=== PATIENT | female | born 1995 | race Caucasian/White ===

== ENCOUNTER 2020-02-06 05:55 | Inpatient (IN) ==
[2020-02-06] MEDS ORDERED: OXYTOCIN 30 UNITS/500 ML BAG IV PRN ×3 (07:58→18:45)
[2020-02-06 08:33] LABS: Hematocrit (blood only) 35.9 % (37-47); Hemoglobin 12.3 g/dL (12.0-16.0); Mean Corpuscular Volume 87.6 fL (80-100); Mean Platelet Volume 10.4 fL (7.4-10.4); Platelet Count 209 K/uL (130-400); RDW Standard Deviation 41.7 fL (36.4-46.3); White Blood Count 14.04 K/uL (4.8-10.8)
[2020-02-06 08:38] LABS: Mean Corpuscular Hgb Conc 34.3 g/dL (32-36)
--- NOTE | 2020-02-06 08:44 | Medical Student H&P ---
Date of Service February 06, 2020 Assessment & Plan (1) Elective induction of labor planned: Patient reports some mild discomfort from cervical Nevarez as well as some n/v last night but overall feeling well now. Proceed with induction of labor per Pitocin augmentation protocol. Will continue to monitor. Patient desires epidural. Anesthesiology consult placed. Expect . Present on Admission?: Yes (2) Need for rhogam due to Rh negative mother: Rhogam administered at 28 weeks (11/15/19). Plan to administer Rhogam again if D-positive baby at 72 hours . Present on Admission?: Yes Admission and Anticipated Discharge Date Admission Date: February 06, 2020 History of Present Illness Chief Complaint: Induction of Labor Primary Care Provider: Albert Fuentes DO Aleisha Cheney is a 24 y/o female currently at 40 w 3d with an ADÁN of 02/04/20 by [facility] who is here for induction of labor due to post-date . Her was complicated by Rh- status s/p Rhogam (11/15/19) and ASCUS with HRHPV. Nevarez bulb was placed by Dr. Salinas at 8PM last night, 02/04. Patient endorsed some cramping, bleeding, nausea and vomiting after this procedure. + contractions; + movement; - fluid loss; - bloody show Had regular appointments with OB. Labs Blood type: A- Antibody screen: negative H.9 (07/19/19) Hct: 34.6% (11/15/19) Rubella: immune (07/19/19) VDRL/RPR: nonreactive (07/19/19) Gonorrhea: neg (07/19/19) Chlamydia: neg (07/19/19) HIV: neg (07/19/19) HbSAg: neg (07/19/19) GBS: neg (01/11/20) Other Screens: Panorama testing - low risk result, female Declined CF/SMA; AFP Allergies Allergy/AdvReac Type Severity Reaction Status Date / Time No Known Allergies Allergy Verified 02/06/20 10:18 Home Medications Home Medications Medication Instructions Recorded Confirmed Type vit no.[id number]-rxaqx 1 tab PO DAILY 02/05/20 02/06/20 History [ Vitamin] Patient History Medical History Abnormal biochemical finding on screening of mother Anxiety Encounter for anatomic survey First trimester Surgical History History of facial fracture repair History of repair of ACL History of rhinoplasty S/P tonsillectomy and adenoidectomy Family History Grandmother (Maternal) Breast cancer Diabetes Mother [place] Stroke Diabetes Denies family history of Colon cancer Ovarian cancer Prostate cancer Myocardial infarction Social History Smoking Status: Never smoker Second Hand Exposure: No; Hx Alcohol Use: No Hx Substance Use: No Preferred Language: Sammarinese Communication Ability: Effective Price Clerk Required: No Beliefs That Will Affect Care: None marital status: Single marital status details: FOB: Sherman Singh (37) [phone] Current Living Situation: Significant Other Current Living Situation Comment: lives with mom, dad, brother, 2 dogs, 1 cat. mom changes litter. current occupational status: employed current occupation: asset accountant Other Information That Helps Us Care for You: No Feels Safe at Home: Yes Safety Concerns: Feels Safe At This Time Diet Comment: no specific diet Dental Care, Regularly: No Physical Activity Frequency: 3-4 Times per Week Seatbelt Use: always Do you think of yourself as: straight/heterosexual Review of Systems no fever, no chills and no sweats no cough and no dyspnea no chest pain and no palpitations + nausea and + vomiting; no abdominal pain and no constipation no dysuria, no urinary frequency and no urinary urgency no dizziness and no headache(s) no changes in vision Physical Exam Constitutional: WD/WN, vitals as above Neck: normal visual inspection Respiratory: normal respiratory effort, lungs clear to auscultation Cardiovascular: Rate/Rhythm: regular rate and regular rhythm Heart Sounds: normal S1 and normal S2; no click, no gallop, no murmur and no cardiac rub Gastrointestinal (Abdomen): normal bowel sounds, soft, nontender, no hepatosplenomegaly Musculoskeletal: No calor, swelling, edema or erythema in the bilateral lower extremities. Stacey's sign negative. Skin: no rashes, warm and dry Psychiatric: A+Ox3, euthymic affect Genitourinary: Manual OB Exam: + cervical dilation 4 cm, + cervical effacement 50% and + station -2 OB Exam Monitor Tracing: + external FHT monitor used, + external uterine monitor used, + category I and + normal FHT variability Results & Data ([facility]) Vital Signs (Past 12 Hours) Vital Signs Temp Pulse Resp BP 02/06/20 07:53 37.1 C 86 20 116/63 02/06/20 07:51 86 116/63 02/05/20 21:10 18 Supervising Attestation Patient seen and evaluated with MS2. Agree with above H&P. Please see other attending H&P.
[2020-02-06] MEDS: LACTATED RINGER'S 1,000 ML IV PRN ×2 (08:53→12:34)
--- NOTE | 2020-02-06 08:54 | History & Physical Report ---
Date of Service February 06, 2020 Assessment & Plan (1) Encounter for induction of labor: Pt doing well. Nausea has improved. Cervical calderon catheter removed via gentle traction by Dr. Lundberg. Pt tolerated well. Proceed with induction of labor per Pitocin augmentation protocol. May consider arom. Will continue to monitor patient. Patient desires epidural; anesthesiology consult placed. Anticipate . (2) Rh negative, maternal: Rhogam administered at 28 weeks (11/15/19). Will plan to administer Rhogam again at 72h pp if baby is D-positive. (3) : Admission and Anticipated Discharge Date Admission Date: February 06, 2020 History of Present Illness Primary Care Provider: Albert Fuentes DO Aleisha Cheney is a 24 y/o female currently at 40 2/7 WGA with an ADÁN 02/04/20 as determined by US#1 (unknown LNMP) who is here for IOL for postdate . was complicated by Rh- status (s/p rhogam 11/15/19) and ASCUS with HRHPV on pap (plan for repeat pap in 1 year due Jun 2020). Patient had a cervical calderon placed last night at 8:00pm by Dr. Salinas. She states that since placement, she has had a lot of cramping and nausea. She did have emesis last night after returning home s/p the procedure. The nausea is improving. Pt otherwise has no other concerns. + int contractions; + movement; - fluid loss; - bloody show Had regular appointments with OB. Blood type: A- Antibody screen: Neg H.3 (today) Hct: 35.9 (today) WBC: 14.04 (today) Plt: 209 (today) Rubella: Immune (07/19/19) VDRL/RPR: Nonreactive (07/19/19) Gonorrhea: Neg (07/19/19) Chlamydia: Neg (07/19/19) HIV: Neg (07/19/19) HbSAg: Neg (07/19/19) GBS: Neg (01/11/20) COVID-19 negative 01/31/20 Other screens: CF: declined SMA: declined Panorama: low risk, female Allergies Allergy/AdvReac Type Severity Reaction Status Date / Time No Known Allergies Allergy Verified 02/06/20 10:18 Home Medications Home Medications Medication Instructions Recorded Confirmed Type vit no.[id number] 1 tab PO DAILY 02/05/20 02/06/20 History [ Vitamin] Patient History Medical History Abnormal biochemical finding on screening of mother Anxiety Encounter for anatomic survey First trimester Surgical History History of facial fracture repair History of repair of ACL History of rhinoplasty S/P tonsillectomy and adenoidectomy Family History Grandmother (Maternal) Breast cancer Diabetes Mother [place] Stroke Diabetes Denies family history of Colon cancer Ovarian cancer Prostate cancer Myocardial infarction Social History Smoking Status: Never smoker Second Hand Exposure: No; Hx Alcohol Use: No Hx Substance Use: No Preferred Language: Rwandan Communication Ability: Effective Workforce Development Assistant Required: No Beliefs That Will Affect Care: None marital status: Single marital status details: FOB: Sherman Singh (37) [phone] Current Living Situation: Significant Other Current Living Situation Comment: lives with mom, dad, brother, 2 dogs, 1 cat. mom changes litter. current occupational status: employed current occupation: real estate accountant Other Information That Helps Us Care for You: No Feels Safe at Home: Yes Safety Concerns: Feels Safe At This Time Diet Comment: no specific diet Dental Care, Regularly: No Physical Activity Frequency: 3-4 Times per Week Seatbelt Use: always Do you think of yourself as: straight/heterosexual Review of Systems Denies fever, chills, sweats Denies shortness of breath. Denies chest pain. Denies breast pain. + abdominal cramping, n/v, all s/p cervical calderon placement Denies dysuria. Denies leg pain or leg swelling. Denies headache or changes in vision. Physical Exam Physical Exam: General: Alert, oriented. No acute distress. Cardiac: Regular rate and rhythm, no murmurs/rubs/gallops. Respiratory: Clear to auscultation bilaterally a/p, no wheezes/rales/rhonchi. No increased work of breathing. Symmetrical chest rise. No respiratory distress. Abdomen: Gravid; full term. EFW 8-9#. Pelvic: Cervical calderon catheter removed with gentle traction by Dr. Lundberg. Dilation 4cm; Effacement 50%; Station -[address] Lundberg. External FHT and external uterine monitors used; Category I tracing; good FHT variability. Lower Extremities: No lower extremity edema or swelling. No deep calf pain. Stacey's negative bilaterally Results & Data ([facility]) Vital Signs (Past 12 Hours) Vital Signs Temp Pulse Resp BP 02/06/20 07:53 37.1 C 86 20 116/63 02/06/20 07:51 86 116/63 02/05/20 21:10 18 Supervising Physician Co-Signing Physician Notes Resident Physician Supervision Note: I interviewed and examined the patient. Discussed with Dr. Momin and agree with findings and plan as documented in the note. Any exceptions or clarifications are listed here: at 40+ weeks presents for postdates induction. Calderon removed this am. fetus categoyry one. cx 4+cm. Plan pit induction, arom when indicated. epidural on demand. Anticipate . Documented By: Farhana Lundberg MD, FACOG
[2020-02-06] MEDS ORDERED: ePHEDrine sulfate 50 MG/ML AMP ONE (11:55)
[2020-02-06] MEDS ORDERED: BUPIVACAINE 0.25% 30 ML VIAL ONE (11:55)
[2020-02-06] MEDS ORDERED: fentaNYL citrate 100 MCG/2 ML VIAL ONE (11:55)
[2020-02-06] MEDS ORDERED: fentaNYL 2MCG/ML ROPIV 1.25MG/ML 100 ML BAG EPI ONE (11:56)
[2020-02-06] MEDS ORDERED: NALOXONE HCL 0.4 MG/1 ML VIAL/CARP IV PRN (12:13)
[2020-02-06] MEDS ORDERED: ePHEDrine sulfate 50 MG/ML AMP IV PRN (12:13)
[2020-02-06] MEDS ORDERED: fentaNYL 2MCG/ML ROPIV 1.25MG/ML 100 ML BAG EPI PRN (12:13)
[2020-02-06] MEDS ORDERED: DiphenhydrAMINE HCL 50 MG/ML VIAL IV PRN (12:13)
[2020-02-06] MEDS ORDERED: NALOXONE HCL 1 MG in SODIUM CHLORIDE 0.9% 1000ML 1,000 ML IV PRN (12:13)
[2020-02-06] MEDS ORDERED: ONDANSETRON INJ 2 MG/ML 2 ML VIAL IV PRN (12:13)
--- NOTE | 2020-02-06 12:18 | Anesthesiology Consultation ---
Date of Service February 06, 2020 Assessment & Plan Chart Review Chart Review: Patient NOT seen in Pre Admission Testing and Acceptable Risk for Labor Epidural Consults Requested none ASA ASA2 Proposed Anesthesia Anesthesia Type: Labor Epidural and CSE Risk / Benefits Reviewed With: PT / POA / Parent / Guardian, Accepts Plan and Informed Consent Obtained History Surgery Covid 19 negative on 01/31/20. Height/Weight Height: 5 ft 9 in Weight: 98.883 kg Allergies Allergy/AdvReac Type Severity Reaction Status Date / Time No Known Allergies Allergy Verified 02/06/20 10:18 Medications Home Medications Medication Instructions Recorded Confirmed Last Taken vit no.[id number] 1 tab PO DAILY 02/05/20 02/06/20 02/04/20 [ Vitamin] Active Medications Generic Name Dose Route Start Last Admin Trade Name Freq PRN Reason Stop Dose Admin Lactated Ringer's 1,000 mls @ 125 mls/hr 02/06/20 07:58 02/06/20 12:00 Lr IV 02/08/20 07:57 999 mls/hr .Q8H PRN Infusion L&D Protocol Protocol Oxytocin 30 units in 500 mls @ 11 mls/hr 02/06/20 07:59 02/06/20 11:30 Pitocin IV 02/08/20 07:58 0.66 units/hr .Q24H PRN 11 mls/hr Labor Induction/Augmentation Titration Protocol 0.66 UNITS/HR NPO Date Last Intake of Fluids: 02/06/20 Time Last Intake of Fluids: 10:30 Date Last Intake of Solids: 02/06/20 Time Last Intake of Solids: 06:30 Past Medical History Medical History Abnormal biochemical finding on screening of mother Anxiety Encounter for anatomic survey First trimester Exercise / Class Metabolic Activity II 4-5 Yardwork/Stairs/Walk up hill Past Family History Family History Grandmother (Maternal) Breast cancer Diabetes Mother [place] Stroke Diabetes Denies family history of Colon cancer Ovarian cancer Prostate cancer Myocardial infarction Past Surgical History Surgical History History of facial fracture repair History of repair of ACL History of rhinoplasty S/P tonsillectomy and adenoidectomy Past Anesthesia History No Hx of Anesthesia Complications and No Family Hx of Anesthesia Complications History of PONV No Hx of PONV and No Hx of Motion Sickness Social History Smoking Status: Never smoker Hx Alcohol Use: No Hx Substance Use: No substance use type: does not use Review of Systems no chest pain or sob Physical Exam Vital Signs Last Vital Signs Temp 37.1 C 02/06/20 07:53 Pulse 82 02/06/20 12:13 Resp 20 02/06/20 10:04 BP 123/72 02/06/20 11:04 Pulse Ox 100 02/06/20 12:13 ENMT Mouth: no TMJ abnormality Thyromental Distance: > or= 3.5 Finger Breadths Mallampati Class: II Neck normal visual inspection Respiratory normal respiratory effort Auscultation: lungs clear to auscultation bilaterally Cardiovascular Rate/Rhythm: regular rate and regular rhythm Musculoskeletal Spine: normal cervical ROM Neurologic moves all extremities Psychiatric Orientation: alert and oriented x 3 Testing Laboratory Results 02/06/20 08:17
--- NOTE | 2020-02-06 13:58 | Labor Progress Brief Note ---
Date of Service February 06, 2020 Subjective comfortable with epidural Assessment & Plan (1) Elective induction of labor planned: Admission and Anticipated Discharge Date Admission Date: February 06, 2020 continue current plan. fetus category one. anticipate nsved. Physical Exam Constitutional: WD/WN, vitals as above Psychiatric: A+Ox3, euthymic affect Genitourinary: cx--4/75/-2 toco--q2-3min, pit at 15 efm--120s wtih mod variability, accels to 150s, no decels Results & Data ([facility]) Vital Signs (Past 12 Hours) Vital Signs Temp Pulse Resp BP Pulse Ox 02/06/20 13:53 70 99 02/06/20 13:48 78 99 02/06/20 13:43 81 98 02/06/20 13:41 78 122/62 02/06/20 13:38 80 99 02/06/20 13:33 70 98 02/06/20 13:28 71 99 02/06/20 13:24 73 126/63 02/06/20 13:23 77 98 02/06/20 13:19 67 117/63 02/06/20 13:18 72 99 02/06/20 13:15 72 139/76 02/06/20 13:13 76 100 02/06/20 13:09 72 127/72 02/06/20 13:08 78 100 02/06/20 13:05 67 123/66 02/06/20 13:03 73 100 02/06/20 13:01 16 02/06/20 12:59 65 18 123/65 02/06/20 12:58 74 100 02/06/20 12:55 68 125/63 02/06/20 12:53 69 100 02/06/20 12:50 67 127/70 02/06/20 12:48 74 100 02/06/20 12:45 70 131/65 02/06/20 12:43 72 100 02/06/20 12:39 70 121/62 02/06/20 12:38 72 99 02/06/20 12:37 82 121/64 02/06/20 12:35 71 122/62 02/06/20 12:33 73 136/70 100 02/06/20 12:31 75 128/61 02/06/20 12:30 74 126/66 02/06/20 12:29 89 128/100 02/06/20 12:28 81 100 02/06/20 12:23 90 100 02/06/20 12:18 86 100 02/06/20 12:13 82 100 02/06/20 12:08 88 100 02/06/20 11:58 45 L 79 L 02/06/20 11:57 37.0 C 16 02/06/20 11:04 75 123/72 02/06/20 10:04 79 20 110/70 02/06/20 07:53 37.1 C 86 20 116/63 02/06/20 07:51 86 116/63 Coding Level of Care Code None Diagnoses Elective induction of labor planned
--- NOTE | 2020-02-06 17:12 | Labor Progress Brief Note ---
Date of Service February 06, 2020 Subjective vomiting. Assessment & Plan (1) Elective induction of labor planned: Admission and Anticipated Discharge Date Admission Date: February 06, 2020 Labor down for an hour then begin pushing. fetus category one. anticipate . Physical Exam Constitutional: WD/WN, vitals as above Psychiatric: A+Ox3, euthymic affect Genitourinary: cx--c/c/0-+1 toco--130s wtih mod variability, accels to 150s, no decels Results & Data ([facility]) Vital Signs (Past 12 Hours) Vital Signs Temp Pulse Resp BP Pulse Ox 02/06/20 17:08 100 H 100 02/06/20 17:03 121 H 100 02/06/20 16:58 92 H 100 02/06/20 16:55 78 128/68 02/06/20 16:53 82 100 02/06/20 16:48 77 100 02/06/20 16:43 85 100 02/06/20 16:41 96 H 134/84 02/06/20 16:39 95 H 90 02/06/20 16:38 96 H 100 02/06/20 16:33 93 H 100 02/06/20 16:28 87 100 02/06/20 16:25 79 120/61 02/06/20 16:23 87 89 L 02/06/20 16:18 73 100 02/06/20 16:13 82 100 02/06/20 16:09 75 104/61 02/06/20 16:08 76 100 02/06/20 16:03 86 100 02/06/20 15:58 77 100 02/06/20 15:54 20 103/58 L 02/06/20 15:53 75 99 02/06/20 15:48 81 99 02/06/20 15:43 82 99 02/06/20 15:40 75 110/57 L 02/06/20 15:38 79 100 02/06/20 15:33 85 100 02/06/20 15:28 79 100 02/06/20 15:26 78 115/65 02/06/20 15:23 66 100 02/06/20 15:18 63 100 02/06/20 15:13 62 100 02/06/20 15:11 64 116/59 L 02/06/20 15:08 87 100 02/06/20 15:04 36.9 C 20 02/06/20 15:03 86 100 02/06/20 14:58 85 97 02/06/20 14:55 59 L 116/68 02/06/20 14:53 58 L 99 02/06/20 14:48 61 98 02/06/20 14:43 62 99 02/06/20 14:40 59 L 118/61 02/06/20 14:38 67 99 02/06/20 14:33 87 99 02/06/20 14:28 74 98 02/06/20 14:23 72 98 02/06/20 14:18 65 99 02/06/20 14:13 70 98 02/06/20 14:11 70 115/61 02/06/20 14:08 77 98 02/06/20 14:03 71 99 02/06/20 13:58 72 98 02/06/20 13:56 78 122/76 02/06/20 13:53 70 99 02/06/20 13:52 20 02/06/20 13:48 78 99 02/06/20 13:43 81 98 02/06/20 13:41 78 122/62 02/06/20 13:38 80 99 02/06/20 13:33 70 98 02/06/20 13:28 71 99 02/06/20 13:24 73 126/63 02/06/20 13:23 77 98 02/06/20 13:19 67 117/63 02/06/20 13:18 72 99 02/06/20 13:15 72 139/76 02/06/20 13:13 76 100 02/06/20 13:09 72 127/72 02/06/20 13:08 78 100 02/06/20 13:05 67 123/66 02/06/20 13:03 73 100 02/06/20 13:01 16 02/06/20 12:59 65 18 123/65 02/06/20 12:58 74 100 02/06/20 12:55 68 125/63 02/06/20 12:53 69 100 02/06/20 12:50 67 127/70 02/06/20 12:48 74 100 02/06/20 12:45 70 131/65 02/06/20 12:43 72 100 02/06/20 12:39 70 121/62 02/06/20 12:38 72 99 02/06/20 12:37 82 121/64 02/06/20 12:35 71 122/62 02/06/20 12:33 73 136/70 100 02/06/20 12:31 75 128/61 02/06/20 12:30 74 126/66 02/06/20 12:29 89 128/100 02/06/20 12:28 81 100 02/06/20 12:23 90 100 02/06/20 12:18 86 100 02/06/20 12:13 82 100 02/06/20 12:08 88 100 02/06/20 11:58 45 L 79 L 02/06/20 11:57 37.0 C 16 02/06/20 11:04 75 123/72 02/06/20 10:04 79 20 110/70 02/06/20 07:53 37.1 C 86 20 116/63 02/06/20 07:51 86 116/63 Coding Level of Care Code None Diagnoses Elective induction of labor planned
--- NOTE | 2020-02-06 17:48 | Labor Progress Brief Note ---
Date of Service February 06, 2020 Subjective comfortable Assessment & Plan Admission and Anticipated Discharge Date Admission Date: February 06, 2020 begin pushing Physical Exam Constitutional: WD/WN, vitals as above Psychiatric: A+Ox3, euthymic affect Genitourinary: started having variables with contractions. Results & Data ([facility]) Vital Signs (Past 12 Hours) Vital Signs Temp Pulse Resp BP Pulse Ox 02/06/20 17:43 90 100 02/06/20 17:40 86 110/60 02/06/20 17:38 81 100 02/06/20 17:33 85 100 02/06/20 17:28 82 100 02/06/20 17:23 90 100 02/06/20 17:19 90 93 02/06/20 17:18 89 100 02/06/20 17:13 93 H 100 02/06/20 17:08 100 H 100 02/06/20 17:03 121 H 100 02/06/20 16:58 92 H 100 02/06/20 16:55 78 128/68 02/06/20 16:53 82 100 02/06/20 16:48 77 100 02/06/20 16:43 85 100 02/06/20 16:41 96 H 134/84 02/06/20 16:39 95 H 90 02/06/20 16:38 96 H 100 02/06/20 16:33 93 H 100 02/06/20 16:28 87 100 02/06/20 16:25 79 120/61 02/06/20 16:23 87 89 L 02/06/20 16:18 73 100 02/06/20 16:13 82 100 02/06/20 16:09 75 104/61 02/06/20 16:08 76 100 02/06/20 16:03 86 100 02/06/20 15:58 77 100 02/06/20 15:54 20 103/58 L 02/06/20 15:53 75 99 02/06/20 15:48 81 99 02/06/20 15:43 82 99 02/06/20 15:40 75 110/57 L 02/06/20 15:38 79 100 02/06/20 15:33 85 100 02/06/20 15:28 79 100 02/06/20 15:26 78 115/65 02/06/20 15:23 66 100 02/06/20 15:18 63 100 02/06/20 15:13 62 100 02/06/20 15:11 64 116/59 L 02/06/20 15:08 87 100 02/06/20 15:04 36.9 C 20 02/06/20 15:03 86 100 02/06/20 14:58 85 97 02/06/20 14:55 59 L 116/68 02/06/20 14:53 58 L 99 02/06/20 14:48 61 98 02/06/20 14:43 62 99 02/06/20 14:40 59 L 118/61 02/06/20 14:38 67 99 02/06/20 14:33 87 99 02/06/20 14:28 74 98 02/06/20 14:23 72 98 02/06/20 14:18 65 99 02/06/20 14:13 70 98 02/06/20 14:11 70 115/61 02/06/20 14:08 77 98 02/06/20 14:03 71 99 02/06/20 13:58 72 98 02/06/20 13:56 78 122/76 02/06/20 13:53 70 99 02/06/20 13:52 20 02/06/20 13:48 78 99 02/06/20 13:43 81 98 02/06/20 13:41 78 122/62 02/06/20 13:38 80 99 02/06/20 13:33 70 98 02/06/20 13:28 71 99 02/06/20 13:24 73 126/63 02/06/20 13:23 77 98 02/06/20 13:19 67 117/63 02/06/20 13:18 72 99 02/06/20 13:15 72 139/76 02/06/20 13:13 76 100 02/06/20 13:09 72 127/72 02/06/20 13:08 78 100 02/06/20 13:05 67 123/66 02/06/20 13:03 73 100 02/06/20 13:01 16 02/06/20 12:59 65 18 123/65 02/06/20 12:58 74 100 02/06/20 12:55 68 125/63 02/06/20 12:53 69 100 02/06/20 12:50 67 127/70 02/06/20 12:48 74 100 02/06/20 12:45 70 131/65 02/06/20 12:43 72 100 02/06/20 12:39 70 121/62 02/06/20 12:38 72 99 02/06/20 12:37 82 121/64 02/06/20 12:35 71 122/62 02/06/20 12:33 73 136/70 100 02/06/20 12:31 75 128/61 02/06/20 12:30 74 126/66 02/06/20 12:29 89 128/100 02/06/20 12:28 81 100 02/06/20 12:23 90 100 02/06/20 12:18 86 100 02/06/20 12:13 82 100 02/06/20 12:08 88 100 02/06/20 11:58 45 L 79 L 02/06/20 11:57 37.0 C 16 02/06/20 11:04 75 123/72 02/06/20 10:04 79 20 110/70 02/06/20 07:53 37.1 C 86 20 116/63 02/06/20 07:51 86 116/63 Coding Level of Care Code None
--- NOTE | 2020-02-06 18:20 | Delivery Summary ---
Vaginal Delivery Summary Date of Service February 06, 2020 Vaginal Delivery Summary Pre-operative Diagnosis: at 40 weeks postdates induction Post-operative Diagnosis: same bilateral labial lacerations Procedure: Nevarez bulb pitocin induction epidural arom repair of labial lacerations EBL: 400cc Anesthesia: epidural Procedure: The patient pushed for 3 contractions to deliver a viable female infant in DELFINO position. The nose and mouth were bulb suctioned on the perineum and the rest of the infant was then delivered without difficulty. The baby was vigorous. The nose and mouth were again bulb suctioned and the infant was placed in the maternal abdomen for drying and attention. Cord was clamped and cut at one minute of life. Cord blood and segment obtained. Placenta delivered spontaneous, intact with a three vessel cord. Cervix/sulc i/rectum/perineum were intact. A bilateral labial lacerations were repaired in the normal standard fashion. Hemostasis obtained with dilute pitocin and fundal massage. Apgars were 9/9. Mother and baby doing well at the end of the delivery.
[2020-02-06] MEDS ORDERED: ACETAMINOPHEN 325 MG TAB PO PRN (18:30)
[2020-02-06] MEDS ORDERED: OXYCODONE/ACETAMINOPHEN 5mg/325mg TAB PO PRN (18:30)
[2020-02-06] MEDS ORDERED: DIPHTHERIA/TETANUS/PERTUSSIS 0.5 ML SYR/VIAL IM ONE (18:45)
[2020-02-06] MEDS ORDERED: SUPERCREAM 0.870% 15 GM JAR EXT PRN (18:45)
[2020-02-06] MEDS ORDERED: bisacodyL 10 MG SUPP PR PRN (18:45)
[2020-02-06] MEDS ORDERED: HYDROCORTISONE ACETATE 25 MG SUPP PR PRN (18:45)
[2020-02-06] MEDS ORDERED: BENZOCAINE 20% AER SPR 82.5 GM CAN EXT PRN (18:45)
--- NOTE | 2020-02-06 19:28 | Anesthesia Procedure Note ---
Date of Service February 06, 2020 Anesthesia Post Epidural Note Vital Signs Vital Signs: Temp Pulse Resp BP Pulse Ox 36.9 C 105 H 18 128/72 100 02/06/20 15:04 02/06/20 19:24 02/06/20 19:09 02/06/20 19:24 02/06/20 18:13 Pain Intensity Bilateral Lower Abdomen: Pain Intensity: 0 Notes Mental Status: alert / awake / arousable and participated in evaluation Nausea / Vomiting: adequately controlled Pain: adequately controlled Airway Patency, RR, SpO2: stable & adequate BP & HR: stable & adequate Hydration State: stable & adequate Neuraxial Anesthesia: was administered and sensory block is resolving Anesthetic Complications: no major complications apparent and Pt Satisfied with anesthetic care Epidural: Removed without complications and With tip intact
[2020-02-06] MEDS: IBUPROFEN 600 MG TAB PO PRN (19:45)
[2020-02-07] MEDS: IBUPROFEN 600 MG TAB PO PRN ×3 (01:47→20:40)
[2020-02-07 05:42] LABS: Hematocrit (blood only) 30.6 % (37-47); Hemoglobin 10.5 g/dL (12.0-16.0)
--- NOTE | 2020-02-07 06:51 | Obstetrical Progress Note ---
Date of Service <Uzma Momin DO - Last Filed: 02/07/20 07:47> February 07, 2020 Assessment & Plan <Uzma Momin DO - Last Filed: 02/07/20 07:47> (1) Normal course: - Hx: GBS neg, rubella immune, Rh- - Feels well today. Eating well, voiding well, ambulating well. - Encouraged patient to continue . - Pain well controlled with ibuprofen 600mg Q4H PRN - Routine care -- OOB, ambulation, diet progression as tolerated - After discharge will have 6 week follow-up with Dr. Lundberg. - Plan for d/c home tomorrow. (2) Rh negative, maternal: - Pt doing well - Awaiting baby's blood work and if baby is D-pos, will administer Rhogam to pt at 72h post delivery Subjective <Uzma Momin DO - Last Filed: 02/07/20 07:47> Aleisha Cheney is a 24 y/o female who is PPD #1 following with epidural s/p IOL at 40 2/7 weeks. It is noted that pt had an elevated temp at 37.8C overnight; she was given Motrin, fever resolved, and no recurrent elevated temperatures; no temperatures > 38.5C. She reports feeling well overall this morning. Minimal abdominal cramping & 2/10 pain well managed on analgesics. Voiding with some external burning sensation but no specific dysuria or hematuria. Tolerating meals overnight and able to ambulate some. - passing gas and - bowel movement. Has persistent lochia with some improvement this morning. Currently . Review of Systems Denies fever or chills. Denies shortness of breath or cough. Denies chest pain. Denies breast pain. Denies dysuria. Denies leg pain or leg swelling. Denies headache or changes in vision. Physical Exam <Uzma Momin DO - Last Filed: 02/07/20 07:47> General: Alert, oriented. No acute distress. Cardiac: Regular rate and rhythm. No murmurs. Respiratory: Clear to auscultation bilaterally a/p, no wheezes/rales/rhonchi. No increased work of breathing. Symmetrical chest rise. No respiratory distress. Abdomen: Soft, nontender, nondistended. Bowel sounds present. Uterus: Uterine fundus firm, palpable 1 cm below umbilicus. Lower Extremities: No lower extremity edema or swelling. No deep calf pain. Stacey's negative bilaterally. Results & Data ([facility]) <Uzma Momin DO - Last Filed: 02/07/20 07:47> Vital Signs (Past 12 Hours) Vital Signs Temp Pulse Resp BP Pulse Ox 02/07/20 03:30 36.7 C 64 18 108/69 99 02/06/20 23:10 37.1 C 84 18 96/58 L 02/06/20 21:30 37.8 C H 86 20 133/84 02/06/20 20:09 92 H 18 123/69 02/06/20 19:54 94 H 122/65 02/06/20 19:39 87 18 121/62 02/06/20 19:24 105 H 128/72 02/06/20 19:09 83 18 125/67 02/06/20 18:54 18 129/75 Laboratory Results H/H 10.5/30.6 this morning <Farhana Lundberg MD, FACOG - Last Filed: 02/07/20 07:56> Co-Signing Physician Notes Resident Physician Supervision Note: I interviewed and examined the patient. Discussed with Dr. Momin and agree with findings and plan as documented in the note. Any exceptions or clarifications are listed here: Doing well. LG temp overnight has not persisted. No concerning issues today. Routine pp care. Documented By: Farhana Lundberg MD, FACOG
--- NOTE | 2020-02-07 07:50 | Medical Student Progress Note ---
Date of Service February 07, 2020 Assessment & Plan (1) Need for rhogam due to Rh negative mother: Rhogam administered at 28 weeks (11/15/19). Plan to administer Rhogam again if D-positive baby at 72 hours . (2) Normal course: - Continue full diet as tolerated. - Continue ambulating. - at this time, difficulty latching. to see today. - Hgb today 10.5, down yesterday from 12.3. Continue PNV on discharge. - Temperature of 37.8 at 8PM last night. Trended down and has remained afebrile. Continue to monitor. - Anticipate discharge home tomorrow. Admission and Anticipated Discharge Date Admission Date: February 06, 2020 Subjective Ms. Aleisha Cheney is a 24-year-old who is PPD #1 after at 40 weeks 3 days. She underwent pitocin IOL with AROM due to postdates . She had a fever 37.8 C at 8PM last night, 02/05, but temperature has been trending down and she has remained afebrile. She does not endorse chills or diaphoresis. She is otherwise doing well. She does not endorse any abdominal pain at rest and had not needed anything to control her pain. She is voiding without difficulty though states that she has some mild pain at the sites of her lacerations upon urination. She tolerated dinner last night and does not endorse any additional nausea or vomiting. She does not endorse flatus or bowel movement at this time. She states that she has had persistent lochia but denies large clots or frequent pad changes. She has been ambulating without issue. She is currently and states that baby has had some difficulty latching. Review of Systems Denies fever and chills. Denies shortness of breath and cough. Denies chest pain. Denies breast pain or abnormal discharge. Denies dysuria, frequency, and urgency. Denies leg pain, swelling, and warmth. Denies headache, changes in vision. Physical Exam Constitutional: WD/WN, vitals as above Neck: normal visual inspection Respiratory: normal respiratory effort, lungs clear to auscultation Cardiovascular: Rate/Rhythm: regular rate and regular rhythm Heart Sounds: normal S1 and normal S2; no click, no gallop, no murmur and no cardiac rub Gastrointestinal (Abdomen): Uterus firm and tender to palpation. Present 1 cm below the umbilicus. Hypoactive bowel sounds. Skin: no rashes, warm and dry Psychiatric: A+Ox3, euthymic affect Results & Data ([facility]) Vital Signs (Past 12 Hours) Vital Signs Temp Pulse Resp BP Pulse Ox 02/07/20 03:30 36.7 C 64 18 108/69 99 02/06/20 23:10 37.1 C 84 18 96/58 L 02/06/20 21:30 37.8 C H 86 20 133/84 02/06/20 20:09 92 H 18 123/69 02/06/20 19:54 94 H 122/65 Supervising Attestation Patient seen and evaluated with MS 2. Please see resident/attending note.
[2020-02-07] MEDS: DOCUSATE SODIUM 100 MG CAP PO SCH ×2 (08:46→20:43)
[2020-02-07] MEDS: PRENATAL VITAMIN 1 TAB PO SCH (08:46)
[2020-02-07] MEDS ORDERED: bisacodyL 5 MG TABEC PO SCH (20:00)
--- NOTE | 2020-02-08 06:43 | Obstetrical Progress Note ---
Date of Service <Uzma Momin DO - Last Filed: 02/08/20 07:17> February 08, 2020 Assessment & Plan <Uzma Momin DO - Last Filed: 02/08/20 07:17> (1) Normal course: - Rh negative status. Plan for Rhogam prior to d/c home. - Feels well today. Eating well, voiding well, ambulating well. - Pain well controlled with ibuprofen 600mg Q4H PRN - Routine care -- OOB, ambulation, diet progression as tolerated - After discharge will have 6 week follow-up with Dr. Lundberg - Plan for d/c home today Subjective <Uzma Momin DO - Last Filed: 02/08/20 07:17> Aleisha Cheney is a 24 y/o female who is PPD #2 following IOL with and epidural at 40 2/7 weeks. She reports feeling well overall this morning. No abdominal cramping and 0/10 pain well managed on analgesics. Voiding without difficulty. Tolerating meals overnight without difficulty. Patient has been able to ambulate some. + passing gas and - bowel movement. Has persistent lochia with improvement this morning. Currently . Review of Systems Denies fever or chills. Denies shortness of breath or cough. Denies chest pain. Denies breast pain. Denies nausea or vomiting. Denies dysuria. Denies leg pain or leg swelling. Denies headache or changes in vision. Physical Exam <Uzma Momin DO - Last Filed: 02/08/20 07:17> General: Alert, oriented. No acute distress. Cardiac: Regular rate and rhythm. No murmurs. Respiratory: Clear to auscultation bilaterally a/p, no wheezes/rales/rhonchi. No increased work of breathing. Symmetrical chest rise. No respiratory distress. Abdomen: Soft, nontender, nondistended. Bowel sounds present. Uterus: Uterine fundus firm, palpable 1 cm below umbilicus. Lower Extremities: No lower extremity edema or swelling. No deep calf pain. Stacey's negative bilaterally. Results & Data ([facility]) <Uzma Momin DO - Last Filed: 02/08/20 07:17> Vital Signs (Past 12 Hours) Vital Signs Temp Pulse Resp BP 02/08/20 00:00 36.8 C 77 18 124/80 02/07/20 20:00 37.0 C 82 18 127/77 <Juan C Smith Jr, MD, FACOG - Last Filed: 02/08/20 07:47> Co-Signing Physician Notes Resident Physician Supervision Note: I was present with Dr. Momin during the history and exam. I discussed the case with the resident and agree with the findings and plan as documented in the note. Any exceptions or clarifications are listed here: Pt desires d/c, instructions given. F/u in 6 weeks Documented By: Juan C Smith Jr, MD, FACOG
[2020-02-08] MEDS: DOCUSATE SODIUM 100 MG CAP PO SCH (07:52)
[2020-02-08] MEDS: PRENATAL VITAMIN 1 TAB PO SCH (07:52)
[2020-02-08] MEDS: IBUPROFEN 600 MG TAB PO PRN (10:44)
== END 2020-02-08 14:05 | disposition home or self-care (01) | DRG 807 ==
LOC: 4S1 07:44 → 4S2 21:10

== ENCOUNTER 2022-02-25 07:52 | Inpatient (IN) ==
[2022-02-25] MEDS ORDERED: LIDOCAINE 1% LOCAL 20 ML VIAL INFIL PRN (08:13)
[2022-02-25] MEDS ORDERED: OXYTOCIN 30 UNITS/500 ML BAG IV PRN ×3 (08:13→18:47)
[2022-02-25] MEDS ORDERED: LACTATED RINGER'S 1,000 ML IV PRN (08:13)
[2022-02-25 08:52] LABS: Hematocrit (blood only) 34.1 % (34.1-44.9); Hemoglobin 11.7 g/dl (12.0-16.0); Mean Corpuscular Hemoglobin 30.1 pg (25.0-34.0); Mean Corpuscular Hgb Conc 34.3 g/dL (32.0-36.0); Mean Corpuscular Volume 87.7 fL (80.0-100.0); Mean Platelet Volume 10.7 fL (9.4-12.3); Platelet Count 214 K/uL (130-400); RDW Coefficient of Variation 12.9 % (11.5-14.5); RDW Standard Deviation 40.7 fL (36.4-46.3); Red Blood Count 3.89 M/uL (3.93-5.22); White Blood Count 10.31 K/ul (4.8-10.8)
[2022-02-25] MEDS ORDERED: fentaNYL citrate 100 MCG/2 ML VIAL ONE (13:56)
[2022-02-25] MEDS ORDERED: ePHEDrine sulfate 50 MG/ML AMP ONE (13:56)
[2022-02-25] MEDS ORDERED: fentaNYL 2MCG/ML ROPIVACAINE 1.25MG/ML 100 ML BAG EPI ONE (13:57)
[2022-02-25] MEDS ORDERED: SODIUM CHLORIDE 0.9% INJ 10 ML VIAL ONE (13:57)
[2022-02-25] MEDS ORDERED: LIDOCAINE 2%/EPINEPHRINE 1:200,000 20 ML SDV ONE (13:57)
[2022-02-25] MEDS ORDERED: BUPIVACAINE 0.25% 30 ML VIAL ONE (13:57)
--- NOTE | 2022-02-25 15:03 | Anesthesiology Consultation ---
Date of Service February 25, 2022 Assessment & Plan Chart Review Chart Review: Acceptable Risk for Surgery Consults Requested none History Height/Weight Height: 5 ft 9 in Weight: 100.698 kg Allergies Allergy/AdvReac Type Severity Reaction Status Date / Time No Known Allergies Allergy Verified 02/24/22 14:40 Medications Home Medications Medication Instructions Recorded Confirmed Last Taken vits no.124-ferrous fum 1 tab PO DAILY 02/05/20 02/24/22 02/04/20 27 mg iron-folic acid 800 mcg tablet ( Vitamin) cholecalciferol (vitamin D3) PO 07/16/21 02/24/22 Unknown zinc citrate PO 07/16/21 02/24/22 Unknown Active Medications Generic Name Dose Route Start Last Admin Trade Name Freq PRN Reason Stop Dose Admin Oxytocin 30 units in 500 mls @ 3 mls/hr 02/25/22 08:13 02/25/22 10:25 Pitocin IV 02/27/22 08:12 0.18 units/hr .Q24H PRN 3 mls/hr Labor Induction/Augmentation Titration Protocol 0.18 UNITS/HR Lactated Ringer's 1,000 mls @ 125 mls/hr 02/25/22 08:13 02/25/22 09:23 Lr IV 02/27/22 08:12 125 mls/hr .Q8H PRN Administration L&D Protocol Protocol Past Medical History Medical History (Updated 01/05/22 @ 16:17 by Autumn Cast) ASCUS with positive high risk HPV cervical History of anxiety History of depression 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) Past Family History Family History (Updated 07/16/21 @ 15:45 by Mitzi REYNOSO, ALEXUS) Grandmother (Maternal) Breast cancer Diabetes Mother [place] Stroke Diabetes Myocardial infarction TIA (transient ischemic attack) Denies family history of Colon cancer Ovarian cancer Prostate cancer Past Surgical History Surgical History History of facial fracture repair History of repair of ACL History of rhinoplasty S/P tonsillectomy and adenoidectomy Social History Smoking Status: Never smoker Hx Alcohol Use: No Hx Substance Use: No substance use type: does not use Physical Exam Vital Signs Last Vital Signs Temp 36.6 C 09/01/22 08:08 Pulse 65 02/25/22 14:59 Resp 18 02/25/22 13:30 BP 121/60 02/25/22 14:52 Pulse Ox 100 02/25/22 14:59 Testing Laboratory Results 02/25/22 08:34 02/25/22 08:39 POC Glucose 78
[2022-02-25] MEDS ORDERED: fentaNYL 2MCG/ML ROPIVACAINE 1.25MG/ML 100 ML BAG EPI PRN (15:05)
[2022-02-25] MEDS ORDERED: NALOXONE HCL 0.4 MG/1 ML VIAL/CARP IV PRN (15:05)
[2022-02-25] MEDS ORDERED: NALOXONE HCL 1 MG in SODIUM CHLORIDE 0.9% 1000ML 1,000 ML IV PRN (15:05)
[2022-02-25] MEDS ORDERED: NALBUPHINE HCL INJ 10 MG/ML AMP IV PRN (15:05)
[2022-02-25] MEDS ORDERED: diphenhydrAMINE 50 MG/ML VIAL IV PRN (15:05)
[2022-02-25] MEDS ORDERED: ePHEDrine sulfate 50 MG/ML AMP IV PRN (15:05)
--- NOTE | 2022-02-25 16:04 | History & Physical Report ---
Date of Service February 25, 2022 Assessment & Plan (1) Gestational diabetes mellitus (GDM) affecting , antepartum: Plan: IUP at 39+ weeks with history of rapid labor and GDM cervical balloon and pitocin augmentation epidural when requested anticipate vaginal Admission and Anticipated Discharge Date Admission Date: February 25, 2022 History of Present Illness Primary Care Provider: Albert Fuentes DO Patient is a 26 yo female EDC 03/01/22 who presents for elective IOL because of prior rapid labor. complicated by diet controlled GDM. 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) Surgical History History of facial fracture repair History of repair of ACL History of rhinoplasty S/P tonsillectomy and adenoidectomy Family History (Updated 07/16/21 @ 15:45 by Mitzi REYNOSO RN) Grandmother (Maternal) Breast cancer Diabetes Mother [place] Stroke Diabetes Myocardial infarction TIA (transient ischemic attack) Denies family history of Colon cancer Ovarian cancer Prostate cancer Social History (Updated 07/16/21 @ 16:04 by Mitzi REYNOSO, ALEXUS) Smoking Status: Never smoker Second Hand Exposure: No; Hx Alcohol Use: No Hx Substance Use: No Preferred Language: Kinyarwanda Communication Ability: Effective Visual Impairment: No Limitations Drop Press Hand Required: No Beliefs That Will Affect Care: None marital status: Single marital status details: FOB: Sherman Singh (39) [phone] Current Living Situation: Family and Significant Other Current Living Situation Comment: lives with SO and daughter current occupational status: employed current occupation: [employer] - works from home Feels Safe at Home: Yes Diet Comment: no specific diet Dental Care, Regularly: No Physical Activity Frequency: 3-4 Times per Week Seatbelt Use: always Do you think of yourself as: straight/heterosexual Assistive Devices: None Review of Systems All systems reviewed & are unremarkable except as noted in HPI & below Physical Exam Constitutional: WD/WN, vitals as above Psychiatric: A+Ox3, euthymic affect Genitourinary: OB Exam Abdomen: + vertex, + estimated weight (6-7 pounds) and + irregular contractions Manual OB Exam: + cervical dilation 1 cm, + cervical effacement 60% and + station -2 OB Exam Monitor Tracing: + external FHT monitor used, + external uterine monitor used, + category I and + normal FHT variability cervical balloon placed without difficulty with 40 cc water placed into the balloon and put on traction. Results & Data ([facility]) Vital Signs (Past 12 Hours) Vital Signs Temp Pulse Resp BP Pulse Ox 02/25/22 15:59 67 100 02/25/22 15:54 66 100 02/25/22 15:52 68 107/66 02/25/22 15:49 59 L 99 02/25/22 15:44 59 L 100 02/25/22 15:39 62 99 02/25/22 15:37 63 100/60 02/25/22 15:34 63 100 02/25/22 15:29 66 100 02/25/22 15:24 72 99 02/25/22 15:21 63 102/58 L 02/25/22 15:19 65 100 02/25/22 15:14 66 100 02/25/22 15:09 65 100 02/25/22 15:06 68 102/66 02/25/22 15:04 63 100 02/25/22 14:59 65 100 02/25/22 14:54 69 100 02/25/22 14:52 76 121/60 02/25/22 14:49 78 100 02/25/22 14:46 69 111/62 02/25/22 14:44 69 100 02/25/22 14:43 69 102/55 L 02/25/22 14:39 72 100 02/25/22 14:40 71 105/65 02/25/22 14:37 70 126/62 02/25/22 14:34 100 02/25/22 14:34 69 02/25/22 14:34 72 124/57 L 02/25/22 14:31 73 125/59 L 02/25/22 14:29 77 100 02/25/22 14:28 75 121/59 L 02/25/22 14:25 86 156/66 H 02/25/22 14:24 78 100 02/25/22 14:22 79 140/75 02/25/22 14:19 79 100 02/25/22 13:30 18 02/25/22 13:30 18 02/25/22 14:14 68 100 02/25/22 13:10 67 118/65 02/25/22 11:50 18 02/25/22 11:50 18 02/25/22 11:20 18 02/25/22 11:20 18 02/25/22 10:50 18 02/25/22 10:50 18 02/25/22 10:25 18 02/25/22 10:25 18 02/25/22 10:54 18 02/25/22 10:54 18 02/25/22 10:56 80 129/73 02/25/22 10:20 18 02/25/22 10:20 18 02/25/22 09:50 18 02/25/22 09:50 18 02/25/22 09:20 18 02/25/22 09:20 18 02/25/22 08:03 18 02/25/22 08:03 18 02/25/22 09:51 71 126/82 02/25/22 08:25 71 123/63 02/25/22 08:08 97.9 F 18 Coding Level of Care Code None Diagnoses Gestational diabetes mellitus (GDM) affecting , antepartum O24.419 CPT Codes Misx Procedure Codes - 82782 Placement of cervical dilator: 51548 Placement of cervical dilator ([id number])
[2022-02-25] MEDS ORDERED: DIPHTHERIA/TETANUS/PERTUSSIS 0.5 ML SYR/VIAL IM ONE (18:47)
[2022-02-25] MEDS ORDERED: ACETAMINOPHEN 325 MG TAB PO PRN (18:47)
[2022-02-25] MEDS ORDERED: bisacodyL 10 MG SUPP PR PRN (18:47)
[2022-02-25] MEDS ORDERED: oxyCODONE/ACETAMINOPHEN 5mg/325mg TAB PO PRN (18:47)
[2022-02-25] MEDS ORDERED: BENZOCAINE 20% AER SPR 82.5 GM CAN EXT PRN (18:47)
[2022-02-25] MEDS ORDERED: HYDROCORTISONE ACETATE 25 MG SUPP PR PRN (18:47)
--- NOTE | 2022-02-25 18:52 | Delivery Summary ---
Vaginal Delivery Summary Date of Service February 25, 2022 Vaginal Delivery Summary [facility] Patient is a 26-year-old 2 para 1-0-0-1 female EDC at 03/01/2022 who presents for elective induction because of rapid labor with her first . A cervical balloon was placed for ripening along with Pitocin augmentation of her contractions. After the balloon fell out, membranes were ruptured for lightly stained meconium fluid. She received effective epidural analgesia and progressed to full dilation. She pushed for delivery of a viable female over intact perineum through 2 contractions. After the head was delivered, the rest of the delivered easily. She was placed on the mother's abdomen for further attention and drying. The was vigorous crying and moving all 4 limbs. The cord was clamped and cut after 1 minute. The placenta was then expressed intact with a three-vessel cord. Estimated blood loss was 200 cc. There was a superficial abrasion of the left labia minora which was not bleeding and therefore not repaired. Mother and infant were doing well after delivery. [facility] Vaginal Delivery Charge Delivery Type Details: [facility]
--- NOTE | 2022-02-25 19:15 | Anesthesia Procedure Note ---
Date of Service February 25, 2022 Anesthesia Post Epidural Note Vital Signs Vital Signs: Temp Pulse Resp BP Pulse Ox 36.7 C 73 18 118/81 100 02/25/22 19:00 02/25/22 19:00 02/25/22 19:00 02/25/22 19:00 02/25/22 19:00 Notes Mental Status: alert / awake / arousable Nausea / Vomiting: adequately controlled Pain: adequately controlled Airway Patency, RR, SpO2: stable & adequate BP & HR: stable & adequate Hydration State: stable & adequate Neuraxial Anesthesia: was administered and sensory block is resolving Anesthetic Complications: no major complications apparent and Pt Satisfied with anesthetic care Epidural: Removed without complications and With tip intact
[2022-02-25] MEDS: DOCUSATE SODIUM 100 MG CAP PO SCH (20:09)
[2022-02-25] MEDS: IBUPROFEN 600 MG TAB PO PRN (20:09)
[2022-02-26] MEDS: IBUPROFEN 600 MG TAB PO PRN ×5 (00:10→20:22)
[2022-02-26 06:09] LABS: Hematocrit (blood only) 32.4 % (34.1-44.9); Mean Corpuscular Hemoglobin 30.1 pg (25.0-34.0); Mean Corpuscular Volume 88.8 fL (80.0-100.0); Mean Platelet Volume 10.5 fL (9.4-12.3); Platelet Count 186 K/uL (130-400); RDW Coefficient of Variation 12.5 % (11.5-14.5); RDW Standard Deviation 40.6 fL (36.4-46.3); Red Blood Count 3.65 M/uL (3.93-5.22); White Blood Count 13.25 K/ul (4.8-10.8)
--- NOTE | 2022-02-26 06:45 | Obstetrical Progress Note ---
Date of Service <Renee Walton MD - Last Filed: 02/26/22 06:59> February 26, 2022 Assessment & Plan <Renee Walton MD - Last Filed: 02/26/22 06:59> (1) Encounter for care and examination after delivery: PPD1 PNC c/b GDM Satisfactory post progress Encourage ambulation. Cleared for discharge this evening. f/u 6 weeks. (2) Gestational diabetes mellitus (GDM) affecting , antepartum: <Shameka Capellan MD, FACOG - Last Filed: 02/26/22 07:23> (1) Encounter for care and examination after delivery: (2) Gestational diabetes mellitus (GDM) affecting , antepartum: Subjective <Renee Walton MD - Last Filed: 02/26/22 06:59> Ambulation: ambulating normally Voiding: no voiding problems Passing Gas:: Yes Diet Tolerance:: regular diet Lochia:: Small Feeding Type:: breast feeding Physical Exam <Renee Walton MD - Last Filed: 02/26/22 06:59> Constitutional WD/WN, vitals as above Respiratory normal respiratory effort, lungs clear to auscultation Cardiovascular RRR, no murmur, no edema no calf tenderness Psychiatric A+Ox3, euthymic affect Genitourinary uterine fundus firm at the level of the umbilicus, nt Results & Data ([facility]) <Renee Walton MD - Last Filed: 02/26/22 06:59> Vital Signs (Past 12 Hours) Vital Signs Temp Pulse Pulse Resp BP BP Pulse Ox 02/26/22 03:17 36.7 C 64 18 126/80 98 02/25/22 23:13 36.7 C 77 20 112/71 97 02/25/22 21:13 37.2 C 71 20 118/71 96 02/25/22 20:50 18 02/25/22 20:30 89 18 117/56 L 02/25/22 20:00 79 18 118/64 02/25/22 19:30 80 18 133/84 02/25/22 19:15 80 18 133/84 02/25/22 18:45 18 02/25/22 19:00 36.7 C 73 18 118/81 100 02/25/22 20:49 89 117/56 L 02/25/22 20:34 88 117/61 02/25/22 20:19 79 118/64 02/25/22 20:04 77 121/64 02/25/22 19:49 84 128/70 02/25/22 19:34 80 133/84 02/25/22 19:19 82 132/72 02/25/22 18:59 73 118/81 100 02/25/22 18:54 75 100 02/25/22 18:52 70 128/73 02/25/22 18:49 72 100 02/25/22 18:44 75 100 O2 Del Method 02/26/22 03:17 Room Air 02/25/22 23:13 Room Air 02/25/22 21:13 Room Air 02/25/22 20:50 02/25/22 20:30 02/25/22 20:00 02/25/22 19:30 02/25/22 19:15 02/25/22 18:45 02/25/22 19:00 02/25/22 20:49 02/25/22 20:34 02/25/22 20:19 02/25/22 20:04 02/25/22 19:49 02/25/22 19:34 02/25/22 19:19 02/25/22 18:59 02/25/22 18:54 02/25/22 18:52 02/25/22 18:49 02/25/22 18:44 <Shameka Capellan MD, FACOG - Last Filed: 02/26/22 07:23> Co-Signing Physician Notes Resident Physician Supervision Note: I interviewed and examined the patient. Discussed with Dr. Walton and agree with findings and plan as documented in the note. Any exceptions or clarifications are listed here: [None] Documented By: Shameka Capellan MD, FACOG Resident Activity Tracking <Renee Walton MD - Last Filed: 02/26/22 06:59> Resident Involvement: Resident Care Provided Care Provided: Adult [facility] Medicine
[2022-02-26] MEDS: DOCUSATE SODIUM 100 MG CAP PO SCH ×2 (07:38→18:16)
[2022-02-26] MEDS ORDERED: PRENATAL VITAMIN 1 TAB PO SCH (08:00)
[2022-02-26] MEDS ORDERED: bisacodyL 5 MG TABEC PO SCH (20:00)
== END 2022-02-26 20:30 | disposition home or self-care (01) | DRG 807 ==
LOC: 4S1 07:52 → 4E2 21:11